=== PATIENT | male | born 1985 | race Caucasian/White ===

== ENCOUNTER 2016-06-07 17:07 | Emergency (ER) | payer MEDICAID ==
[~2016-06-07] VITALS: Ht 167.6 cm; Wt 82.1 kg
[~2016-06-07 17:07] MED LIST: AZIT250T94 PO; D-ME473S18 PO; IBUP-1542 PO
[2016-06-07 17:11] VITALS: Ht 167.6 cm; Wt 82.1 kg
[2016-06-07] MEDS ORDERED: GUAI120S26 PO (17:34)
[2016-06-07] MEDS ORDERED: IBUP800T25 PO (17:34)
--- NOTE | 2016-06-07 17:54 | ERD ---
ER Documentation Chief Complaint Date/Time DATE: 06/07/16 TIME: 17:52 Chief Complaint SORE THROAT AND FEVER X 2 DAYS HPI 30-year-old male with no significant past medical history presents to the ED complaining of fever, dry cough that started 2 days ago. Patient reports that his son, and daughters also have similar symptoms of cough and fever. States that he has been taking Advil with relief of his fever. Denies any abdominal pain, nausea, vomiting, chest pain, shortness of breath, dyspnea on exertion, pleuritic chest pain, hemoptysis. ROS All systems reviewed and are negative except as per history of present illness. Medications Home Meds Active Scripts Ibuprofen* (Motrin*) 800 Mg Tab, 800 MG PO Q6, #30 TAB china con comida Prov:JAKUB VIZCAINO PA-C 06/07/16 Yrmdsitfczg-P-Cllxdovwku Hb* (Guaifenesin* DM Syrup) 120 Ml Syrup, 10 ML PO Q4H Y for COUGH, #120 ML Prov:JAKUB VIZCAINO PA-C 06/07/16 Ibuprofen* (Ibuprofen*) 600 Mg Tablet, 600 MG PO Q6, #15 TAB Prov:KIERRA LAINEZ MD 04/07/16 Dextromethorphan Hb-Promethazine Hcl (Promethazine DM Syrup) 473 Ml Syrup, 5 ML PO Q6H Y for COUGH, #4 OZ Prov:KIERRA LAINEZ MD 04/07/16 Azithromycin* (Zithromax*) 250 Mg Tablet, 250 MG PO .ZPACK DIRECTED, #6 TAB TAKE 500 MG (2 TABS) THE FIRST DAY THEN 250 MG (1 TAB) DAYS 2-5 Prov:KIERRA LAINEZ MD 04/07/16 Allergies Allergies: Coded Allergies: No Known Allergy (Unverified , 04/07/16) PMhx/Soc Hx Alcohol Use: No Hx Substance Use: No Hx Tobacco Use: No Physical Exam Vitals Vital Signs Date Time Temp Pulse Resp B/P Pulse Ox O2 Delivery O2 Flow Rate FiO2 06/07/16 17:11 99.7 114 18 145/74 96 Physical Exam Const: Dbl-nkf-wtgwedssi, well-nourished. In no acute distress. Head: Atraumatic, normocephalic Eyes: Normal Conjunctiva without injection. No purulent discharge. PERRL. EOMI ENT: Normal external ear. Ear canal without erythema. Tympanic membrane pearly chiang without effusion or bulging. Nasal canal clear with normal turbinates. Moist oropharynx without tonsillar exudates. Non-erythematous pharynx. Uvula midline. No drooling. No trismus. Neck: Full range of motion. No meningismus. No cervical lymphadenopathy. Resp: Clear to auscultation bilaterally. No wheezing, rhonchi, rales, or crackles. No accessory muscle use. No retractions. Cardio: Regular rate and rhythm. No murmurs, rubs or gallops. Abd: Soft, non tender, non distended. Normal bowel sounds. No palpable masses. No rebound tenderness. No guarding. Skin: No petechiae or rashes Back: No midline tenderness. No CVA tenderness. Ext: No cyanosis, or edema. Neur: Awake and alert. Psych: Normal Mood and Affect Procedures/MDM This is a 30-year-old male with no significant past medical history presents to the ED complaining of dry cough and fever that started 2 days ago. Patient is afebrile and nontoxic-appearing. This patient presents to the ED with symptoms consistent with a viral acute upper respiratory infection since he also has sick contacts with similar symptoms.. Patient is afebrile and has normal vital signs. Patient's physical exam include lungs which were clear to auscultation and a normal pulse oximetry. There is a low suspicion for pneumonia, pneumothorax, pulmonary embolism, epiglottitis, otitis media, otitis externa, viral/strep pharyngitis, sinusitis, peritonsillar abscess, mastoiditis, retropharyngeal abscess, meningitis, sepsis, acute abdomen or other emergent conditions. Fluids, rest, and symptomatic treatment are recommended for the management of patient's symptoms. Discharge medications: Ibuprofen, Guaifenesin DM Patient was instructed to return to the ED for any new or worsening symptoms. They should otherwise follow up with the primary care provider within 1-2 days. The patient's questions were answered at the time of discharge. Patient understood and agreed with discharge management. Departure Diagnosis: Primary Impression: URI (upper respiratory infection) URI type: unspecified URI Qualified Code: J06.9 - Upper respiratory tract infection, unspecified type Condition: Stable Patient Instructions: Preventing Common Respiratory Infections, Uri, Viral, No Abx (Adult) [facility] Usted se neri hecho un examen mdico de control que le indica que no est en agustina condicin que requiera tratamiento urgente en el Departamento de Emergencia. Un estudio ms profundo y el tratamiento de beltre condicin pueden esperar sin ningn riesgo hasta que usted sea atendida/o en el consultorio de beltre mdico o agustina cl devaughn. Es responsabilidad suya arreglar agustina dk para el seguimiento del dewey. MANEJO DE CONDICIONES NO URGENTES EN EL FUTURO 1) Si usted tiene un mdico de atencin primaria: Usted debera llamar a beltre mdico de atencin primaria antes de venir al departamento de emergencia. Despus de las horas de consultorio, beltre doctor o beltre asociado/a est disponible por telfono. El mdico o enfermero de ivan en el servicio telefnico puede asesorarle por nirmal medio para atender el problema, o dewey contrario se puede programar agustina dk. 2) Si usted no tiene un mdico de atencin primaria: Llame al mdico o clnica de referencia que aparece abajo tito las horas de consultorio para hacer agustina dk para que le vean. CLINICAS: [facility] [phone] [facility] [phone] [facility] [phone] [facility]. [facility] [phone] [facility] [phone] [address] [facility]. [phone] [address] [facility] () Usted se neri hecho un examen mdico de control que le indica que no est en agustina condicin que requiera tratamiento urgente en el Departamento de Emergencia. Un estudio ms profundo y el tratamiento de beltre condicin pueden esperar sin ningn riesgo hasta que usted sea atendida/o en el consultorio de beltre mdico o agustina cl devaughn. Es responsabilidad suya arreglar agustina dk para el seguimiento del dewey. MANEJO DE CONDICIONES NO URGENTES EN EL FUTURO 1) Si usted tiene un mdico de atencin primaria: Usted debera llamar a beltre mdico de atencin primaria antes de venir al departamento de emergencia. Despus de las horas de consultorio, beltre doctor o beltre asociado/a est disponible por telfono. El mdico o enfermero de ivan en el servicio telefnico puede asesorarle por nirmal medio para atender el problema, o dewey contrario se puede programar agustina dk. 2) Si usted no tiene un mdico de atencin primaria: Llame al mdico o condado institucions de referencia que aparece abajo tito las horas de consultorio para hacer agustina dk para que le vean. SI USTED NO PUEDE PAGAR PARA DODIE UN MEDICO puede ir a: [facility] [id number] [place] [address] [facility] [address] [place] [address] [facility] [address] [place] [address] PARA [facility] [address] [place] [address] [facility] URGENT CARE/SPECIALTIES Additional Instructions: Llame al doctor MAANA y dread agustina DK PARA DENTRO DE 1-2 BAGLEY.Dgale a la secretaria que nosotros le instruimos hacer esta dk.Avise o llame si beltre condicin se empeora antes de la dk. Regresa aqui si peor o no mejor. JAKUB VIZCAINO PA-C Jun 07, 2016 17:54
== END 2016-06-07 17:35 | disposition home or self-care (01) ==
LOC: E/R 17:07
DX: J06.9 Acute upper respiratory infection, unspecified (principal)
CPT/HCPCS: 99283

== ENCOUNTER 2017-05-19 14:57 | Emergency (ER) | END 2017-05-19 18:28 | disposition left against medical advice (07) ==

== ENCOUNTER 2017-08-12 21:57 | Emergency (ER) | END 2017-08-12 23:40 | disposition home or self-care (01) ==